=== PATIENT | female | born 1985 | race Caucasian/White ===

== ENCOUNTER 2020-03-24 07:02 | Outpatient (NON) | payer OTHER, SELFPAY ==
[2020-03-24 18:34] LABS: SARS-CoV-2 RNA PCR Negative
== END 2020-03-24 07:03 ==
LOC: ANHCOVIDDT 07:02
PROVIDERS: PCP Family Medicine; Visit Provider Family Medicine
DX: Z20.828 Contact with and (suspected) exposure to other viral communicable diseases (principal); R51.9 Headache, unspecified; J02.9 Acute pharyngitis, unspecified; R05 Cough; R09.89 Other specified symptoms and signs involving the circulatory and respiratory systems
CPT/HCPCS: 87635; C9803; U0003

== ENCOUNTER 2024-03-26 08:48 | Emergency (ER) | payer OTHER, SELFPAY ==
[2024-03-26 08:55] VITALS: BP 102/77; PULSE 105; RESP 20; TEMP 36.7; O2SAT 100
--- NOTE | 2024-03-26 09:12 | ED_ITS ---
HPI - URI/Sore Throat General Chief Complaint: Upper Respiratory Infection Stated Complaint: Cold Symptoms Time Seen by Provider: 03/26/24 09:12 Source: patient Mode of arrival: ambulatory Limitations: no limitations History of Present Illness HPI Narrative: 38 yo F presents with c/o nasal congestion, sinus pressure/pain, PND, cough with chest congestion for 2 wks. Afebrile. Not taking any OTC meds to treat symptoms. No CP or SOB. Concerned she may have pneuomonia. All systems reviewed and negative except as noted above. Related Data Home Medications ?Medication ?Instructions ?Recorded ?Confirmed ?Last Taken ?Type levothyroxine 25 mcg tablet 25 mcg PO DAILY 12/04/19 03/26/24 Unknown History Allergies Allergy/AdvReac Type Severity Reaction Status Date / Time tiffanie Allergy Unknown FACIAL Verified 03/26/24 09:03 SWELLING Review of Systems Review of Systems: CONSTITUTIONAL: Denies fever reports chills, fatigue. EYES: Denies visual changes, redness, or discharge. ENT: Reports rhinorrhea, congestion, sinus pressure, postnasal drainage. Denies sore throat, or otalgia. CARDIOVASCULAR: Denies chest pain, palpitations, or edema. RESPIRATORY: Reports cough, chest congestion. Denies dyspnea. GASTROINTESTINAL: Denies abdominal pain, nausea, vomiting, or diarrhea. GENITOURINARY: Denies dysuria or hematuria. SKIN: Denies rash or itching. MUSCULOSKELETAL: Denies back pain, joint pain, or myalgia. NEUROLOGIC: Denies headache, numbness, or weakness. PSYCHIATRIC: Denies anxiety or depression. All other systems reviewed are negative, except as documented in HPI. FOR[facility], [facility] Past Medical History Medical History Dermatitis Family History Family History Mother Hypertension Family history of cardiovascular disease Family history of cardiomyopathy Social History Social History (Updated 04/18/23 @ 14:37 by Dariela Roberts MA) Smoking status: Never smoker Alcohol intake: current Alcohol use details: rarely Substance use: never Substance use type: does not use Do You Feel Safe in your Home?: Yes Lack of Transportation: No Lack of Food: Never True Current Housing: I Have Housing Concerned About Future Housing: No Difficulty Paying Gas/Electric Bills: No Difficulty Paying for Meds: No Currently Unemployed: No Education: Master's Degree or Higher Difficulty w/ Childcare or Family Care: No Living arrangements: with family Comments At time of signature, agree with nursing past medical, surgical, social and family history. There is no relevant family history pertinent to the presenting complaint. Exam Narrative: GENERAL: This is a well-nourished, well-developed patient, in no apparent distress. HEAD: normocephalic, atraumatic. EYES: PERRL. Sclera clear/white. Vision is grossly intact. EARS: External ears normal, auditory canals clear and without drainage, TMs normal without perforation. Hearing grossly intact. NOSE: External nose normal with moderate congestion, purulent nasal drainage, erythema and swelling to bilateral nares. Bilateral maxillary sinus tenderness on palpation. THROAT: Mucous membranes moist, mild erythema with postnasal drainage. No swelling or exudates. NECK: Neck supple, non-tender without lymphadenopathy, masses or thyromegaly. CARDIOVASCULAR: Regular rate and rhythm without murmurs, gallops, or rubs. RESPIRATORY: Clear to auscultation. Breath sounds equal bilaterally. No wheezes, rales, or rhonchi. SKIN: warm, Dry, intact with no suspicious lesions or rash, good texture and turgor. NEURO: awake, alert, and oriented to person, place and time. There were no obvious focal neurologic abnormalities. EXTREMITIES: No joint tenderness, effusion, or edema noted. Course Course Level of Care: Express Care Visit Vital Signs Vital signs: Vital Signs Temperature 36.7 C 03/26/24 08:55 Pulse Rate 105 H 03/26/24 08:55 Respiratory Rate 20 03/26/24 08:55 Blood Pressure 102/77 03/26/24 08:55 Pulse Oximetry 100 03/26/24 08:55 Oxygen Delivery Room Air 03/26/24 08:55 Temperature 36.7 C 03/26/24 08:55 Pulse Rate 105 H 03/26/24 08:55 Respiratory Rate 20 03/26/24 08:55 Blood Pressure 102/77 03/26/24 08:55 Pulse Oximetry 100 03/26/24 08:55 Oxygen Delivery Room Air 03/26/24 08:55 Reviewed MDM - URI/Sore Throat MDM Narrative Medical decision making narrative: Lungs clear to auscultation. Patient is well-appearing, nontoxic. Will treat patient for bacterial sinusitis due to duration of symptoms and exam findings. A chest x-ray was offered due to patient's concern for pneumonia but she did not feel was necessary. Patient is aware of diagnosis, understands and agrees to treatment plan. Anticipatory guidance given. Patient agrees to follow-up as directed and is aware of reasons to seek care at the emergency department. Portions of this record may have been created with voice recognition software Differential Diagnosis Differential diagnosis: Likely upper respiratory infection, sinusitis and viral infection Discharge Plan Discharge Clinical Impression: Acute bacterial sinusitis Patient Disposition: Home, Self-Care Condition: Stable Instructions: Antibiotic Form, Sinusitis (ED) Additional Instructions: Take antibiotic as prescribed until gone. Taking [id number]-[id number] antihistamine daily such as Claritin or Zyrtec. Use an slyv-cvm-brjwapw nasal spray such as Flonase or Nasacort. Take ibuprofen or Tylenol every 6-8 hours as needed for pain and fever. Drink at least 64 oz water a day. [address] cool mist humidifier in bedroom where you sleep. Follow-up your primary care physician if symptoms are not improving. Patient Language: Azeri Prescriptions: New doxycycline hyclate 100 mg capsule 100 mg PO BID 7 Days Qty: 14 0RF No Action clotrimazole 1 % cream 1 applic topical Q12H Qty: 45 0RF levothyroxine 25 mcg tablet 25 mcg PO DAILY Follow-up/Referrals: Dipti,MD Kacy [Primary Care Provider] - Time of Disposition: 09:17
== END 2024-03-26 09:16 | disposition home or self-care (01) ==
PROVIDERS: Emergency Provider Nurse Practitioner Family; PCP Internal Medicine
DX: J01.90 Acute sinusitis, unspecified (principal)
CPT/HCPCS: 99213; G0463

== ENCOUNTER 2025-03-25 07:38 | Outpatient (CLI) | payer OTHER, SELFPAY ==
--- NOTE | ~2025-03-25 | MR_ITS ---
MR breast BI wo/w con INDICATION:39 year old female presents for imaging evaluation of extremely dense breast tissue. TECHNIQUE: MRI of the breasts perform using standard protocol pre-and post IV contrast with the following sequences: Axial T2 STIR, axial T1, axial vibrant T1 with fat suppression precontrast and multiphasic postcontrast. 11 cc MultiHance administered intravenously. COMPARISON: Mammogram and ultrasound dated 12/27/2024. FINDINGS: There is Markedly dense fibroglandular tissue that demonstrates Moderate enhancement and is Symmetric. Right breast: There are no abnormalities on the precontrast sequences. There is prominent background nodular parenchymal enhancement. No enhancing lesions following contrast administration. No areas of enhancement meeting threshold criteria on CAD analysis. Nipple areolar complex is normal in appearance. No evidence of signal abnormalities in the axillary or internal mammary node distributions. LEFT BREAST: No signal abnormalities on precontrast sequences. There is prominent background nodular enhancement pattern. No enhancing lesions following contrast administration. No areas of enhancement meeting threshold criteria on CAD analysis. The nipple areolar complex is normal in appearance. No evidence of signal abnormalities in the axillary or internal mammary node distributions.] IMPRESSION: 1: Right breast: Negative. 2. Left breast: Negative. No evidence of malignancy. 3. The chest wall and axillary portion of the examination unremarkable. RECOMMENDATION: Follow-up MRI may be useful for supplementing mammographic evaluation as clinically indicated. BI-RADS Category 1: Negative Reviewed, dictated and finalized at location A. [facility] IMPRESSION: 1: Right breast: Negative. 2. Left breast: Negative. No evidence of malignancy. 3. The chest wall and axillary portion of the examination unremarkable. RECOMMENDATION: Follow-up MRI may be useful for supplementing mammographic evaluation as clinic ally indicated. BI-RADS Category 1: Negative
== END 2025-03-25 07:39 | disposition home or self-care (01) ==
PROVIDERS: PCP Internal Medicine; Visit Provider Surgery
DX: R92.343 Mammographic extreme density, bilateral breasts (principal); Z80.3 Family history of malignant neoplasm of breast
CPT/HCPCS: 77049; A9577; C8908